=== PATIENT | female | born 1945 | race Two or more races ===

== ENCOUNTER 2018-09-16 14:33 | Emergency (ER) | payer MEDICARE, MEDICAID ==
[~2018-09-16] VITALS: Ht 167.6 cm; Wt 116.2 kg
[~2018-09-16 14:33] MED LIST: ASCO500T11 PO; DOCU100C8 PO; FERR-20 PO; GABA300C10 PO; LEVO200I5 PO; MECL-87 PO; METF-370 PO; MULTCAP45 PO
[2018-09-16 15:31] LABS: Basophils # (auto) 0.1 uL; Eosinophils # (auto) 0.2 uL; Eosinophils % (auto) 2.4 % (0.0-7.0); Hemoglobin 12.7 g/dL (12.2-16.2); Mean Corpuscular Hgb Conc. 31.8 g/dL (32.0-36.0); Monocytes # (auto) 0.5 uL; Neutrophils # (auto) 6.5 uL; Red Cell Distribution Width 14.1 % (11.8-14.3)
[2018-09-16 15:33] LABS: Basophils % (auto) 0.8 % (0.0-2.0); Lymphocytes # (auto) 1.6 uL; Lymphocytes % (auto) 18.2 % (10.0-50.0); Mean Corpuscular Hemoglobin 26.8 pg (28.0-32.0); Mean Corpuscular Volume 84.3 fL (80.0-100.0); Monocytes % (auto) 5.9 % (0.0-12.0); Neutrophils % (auto) 72.7 % (37.0-80.0); Nucleated Red Blood Cells % 0.1 %; Platelet Count (auto) 316 10^3/uL (140-450); Red Blood Cells 4.74 10^6/uL (4.0-5.20)
[2018-09-16 15:50] LABS: Albumin 3.5 g/dL (3.4-5.0); Anion Gap 7 (5-15); Blood Urea Nitrogen 14 mg/dL (7-18); Calcium 9.1 mg/dL (8.5-10.1); Carbon Dioxide 28 mmol/L (21-32); Chloride 106 mmol/L (98-107); Glucose 115 mg/dL (74-106); Potassium 3.6 mmol/L (3.5-5.1); Sodium 141 mmol/L (136-145)
[2018-09-16 15:54] LABS: Alanine Aminotransferase 19 U/L (13-56); Alkaline Phosphatase 121 U/L (45-117); Aspartate Aminotransferase 14 U/L (15-37); BUN/Creatinine Ratio 18.9; Bilirubin, Total 0.2 mg/dL (0.2-1.0); GFR African American 99 mL/min; GFR Non-African American 82 mL/min; Total Protein 8.3 g/dL (6.4-8.2)
[2018-09-16 16:44] VITALS: BP 116/53
== END 2018-09-16 20:00 | disposition left against medical advice (07) ==
LOC: EDBD 14:33 → ER 14:40
DX: R53.1 Weakness (principal); R51 Headache
CPT/HCPCS: 36415; 70450; 80053; 84484; 85025; 93005